=== PATIENT | male | born 1995 | race Caucasian/White ===

== ENCOUNTER 2019-11-16 16:02 | Emergency (ER) | payer OTHER ==
[~2019-11-16] VITALS: Ht 170.2 cm; Wt 55.3 kg
[2019-11-16] MEDS ORDERED: CYCL10 PO (17:16)
[2019-11-16] MEDS ORDERED: IBUP800 PO (17:16)
== END 2019-11-16 17:26 | disposition home or self-care (01) ==
LOC: ER 16:02
DX: M43.6 Torticollis (principal)
CPT/HCPCS: 71046; 99283-25; A9270-GY